=== PATIENT | male | born 1950 | race African-American/Black ===

== ENCOUNTER → 2019-09-02 | Day surgery (SDC) | payer OTHER ==
[~2019-09-02] MED LIST: ACETAMINOPHEN 325 MG TABLET PO PRN; ALBUTEROL SULFATE 2.5 MG/3 ML NEBU. NEB PRN; ASPI81TA59 PO; ATOR10TA60 PO; ATROPINE 0.5 MG/5 ML DISP.SYRIN. IV PRN; BALANCED SALT IRRIG OPHTH SOLN 15 ML BOTTLE. IRR ONE; CATARACT OPHTH GEL 0.5 ML SYRINGE. OS ONE; CHONDROIT-SOD-HYALURONATE KIT. OS ONE; EPINEPHrine AMPULE 0.5 MG in BALANCED SALT IRRIG SOLN PLUS 500 ML IO ONE; ERYTHROMYCIN 0.5% OPHTH OINTMENT 1GM TUBE. OS ONE; FOLI0.8T2 PO; HYALURONIDASE 75UNITS in LIDOCAINE 2% PF OPHTH 10 ML SYRINGE. OS ONE; KETOROLAC TROMETHAMINE 0.5% OPHTH SOLUTION BOTTLE. ONE; KETOROLAC TROMETHAMINE 0.5% OPHTH SOLUTION BOTTLE. OS SCH; LIDO/EPI IN BSS OPHTH 4 ML SYRINGE OS ONE; LISI-338 PO; LISI2.5T PO; LORA-254 PO; MOXIFLOXACIN 0.5% OPHTH SOLUTION 3ML BOTTLE. OS SCH; ONDANSETRON PF 4 MG/2 ML VIAL. IV PRN; POVIDONE-IODINE 5% OPHTH SOLUTION 30ML BOTTLE. OS ONE; PROPOFOL 20 ML IV ONE; TETRACAINE 0.5% OPHTH SOLUTION 4ML BOTTLE. OS ONE; TETRACAINE 0.5% OPHTH SOLUTION 4ML BOTTLE. OU ONE; THIA100T57 PO; diphenhydrAMINE 50 MG/ML VIAL IV PRN; prednisoLONE ACETATE 1% OPHTH SUSPENSION 5ML BOTTLE. ONE; prednisoLONE ACETATE 1% OPHTH SUSPENSION 5ML BOTTLE. OS SCH
[2019-09-02] MEDS: MOXIFLOXACIN 0.5% OPHTH SOLUTION 3ML BOTTLE. OS SCH ×3 (07:38→07:44)
--- NOTE | 2019-09-02 09:00 | PDOC4 ---
Date of Procedure: Sep 02, 2019 Preoperative Diagnosis: Mature Cataract, left Eye Postoperative Diagnosis: Mature Cataract, left Eye IFIS, OS Anesthesia: Local (Block) with monitored anesthesia care Surgeon: Felix Coronel D.O. Procedure: 1. Phacoemulsification with Intraocular Lens Implant 2. Vision Blue Staining of Anterior Capsule Findings: Mature cataract IFIS Indications: Worsening vision interfering with patient's lifestyle Narrative: After discussing the risks, complications and alternatives, including but not limited to loss of vision, infection, bleeding, swelling, anesthetic reaction, capsule rupture with vitreous loss, etc., the patient was given a peribulbar block under mild IV sedation and cardiac monitoring. Pressure was applied to the eye for approximately 10 minutes. The patient was transferred to the main operating room and was prepped and draped in the usual sterile fashion and positioned under the microscope. A lid speculum was placed. A side port incision was made. Due to poor dilation, epi-shugarcaine was injected. Air was injected into the anterior chamber followed by Vision Blue. After 30 seconds, a temporal 2.4 mm incision was made and the Vision Blue was aspirated from the eye. A continuous tear capsulorrhexis was performed, then hydrodissection was accomplished with balanced salt solution. The phacoemulsification needle was placed in the eye and the nucleus was emulsified. The remaining cortical material was removed with the irrigation and aspiration apparatus. The capsule was polished as needed. The posterior capsule was noted to be clean and intact. Viscoelastic was injected into the eye inflating the capsular bag. An intraocular lens was injected to the eye, unfolding as desired and was positioned in the capsular bag. The viscoelastic was aspirated from the eye. The wound edges were hydrated with balanced salt solution and there were no leaks. Viscoelastic was injected over the limbal incisions. Antibiotic and steroid were placed on the eye. The lid speculum was removed, the eye patched shut and a Meehan shield applied. There were no complications and the patient was taken to PACU in good condition. FELIX CORONEL DO Sep 02, 2019 09:00
[2019-09-02 09:15] VITALS: BP 131/84
== END ==
LOC: SURG 06:53
PROVIDERS: ATTEND Ophthalmology
DX: H26.8 Other specified cataract (principal); H21.81 Floppy iris syndrome; F17.210 Nicotine dependence, cigarettes, uncomplicated
CPT/HCPCS: 66982; J0171; J2704; V2632

== ENCOUNTER → 2019-09-23 | Day surgery (SDC) | payer OTHER ==
[~2019-09-23] MED LIST changes: -ACETAMINOPHEN 325 MG TABLET PO PRN; -ALBUTEROL SULFATE 2.5 MG/3 ML NEBU. NEB PRN; -ATROPINE 0.5 MG/5 ML DISP.SYRIN. IV PRN; +BENZONATATE 100 MG CAPSULE. PO ONE; +CATARACT OPHTH GEL 0.5 ML SYRINGE. OD ONE; -CATARACT OPHTH GEL 0.5 ML SYRINGE. OS ONE; +CHONDROIT-SOD-HYALURONATE KIT. OD ONE; -CHONDROIT-SOD-HYALURONATE KIT. OS ONE; +ERYTHROMYCIN 0.5% OPHTH OINTMENT 1GM TUBE. OD ONE; -ERYTHROMYCIN 0.5% OPHTH OINTMENT 1GM TUBE. OS ONE; +HYALURONIDASE 75UNITS in LIDOCAINE 2% PF OPHTH 10 ML SYRINGE. OD ONE; -HYALURONIDASE 75UNITS in LIDOCAINE 2% PF OPHTH 10 ML SYRINGE. OS ONE; +IPRATRPIUM/ALBUTEROL 0.5/2.5MG 3 ML NEBU. NEB PRN; +IV RINGERS SOLUTION,LACTATED 1,000 ML IV SCH; +KETOROLAC TROMETHAMINE 0.5% OPHTH SOLUTION BOTTLE. OD SCH; -KETOROLAC TROMETHAMINE 0.5% OPHTH SOLUTION BOTTLE. OS SCH; -LIDO/EPI IN BSS OPHTH 4 ML SYRINGE OS ONE; +MIDAZOLAM HCL PF 2 MG/2 ML VIAL. IV ONE; +MOXIFLOXACIN 0.5% OPHTH SOLUTION 3ML BOTTLE. OD SCH; -MOXIFLOXACIN 0.5% OPHTH SOLUTION 3ML BOTTLE. OS SCH; +POVIDONE-IODINE 5% OPHTH SOLUTION 30ML BOTTLE. OD ONE; -POVIDONE-IODINE 5% OPHTH SOLUTION 30ML BOTTLE. OS ONE; +TETRACAINE 0.5% OPHTH SOLUTION 4ML BOTTLE. OD ONE; -TETRACAINE 0.5% OPHTH SOLUTION 4ML BOTTLE. OS ONE; -diphenhydrAMINE 50 MG/ML VIAL IV PRN; +prednisoLONE ACETATE 1% OPHTH SUSPENSION 5ML BOTTLE. OD SCH; -prednisoLONE ACETATE 1% OPHTH SUSPENSION 5ML BOTTLE. OS SCH
[2019-09-23] MEDS: MOXIFLOXACIN 0.5% OPHTH SOLUTION 3ML BOTTLE. OD SCH ×3 (08:53→09:18)
--- NOTE | 2019-09-23 09:45 | PDOC4 ---
Phaco IOL/IFIS w/o Ring/OD Date of Procedure: Sep 23, 2019 Preoperative Diagnosis: 1. Senile Cataract, Right Eye 2. Anticipated Intraoperative Floppy Iris Syndrome Postoperative Diagnosis: 1. Senile Cataract, Right Eye 2. Intraoperative Floppy Iris Syndrome Anesthesia: Local (Block) with monitored anesthesia care Surgeon: Felix Coronel D.O. Procedure: Procdeure: Right Phacoemulsification with intraocular lens implant Findings: Senile Cataract Intraoperative Floppy Iris Syndrome Indications: Worsening vision interfering with patient's lifestyle Narrative: After discussing the risks, complications and alternatives, including but not limited to loss of vision, infection, bleeding, swelling, anesthetic reaction, capsule rupture with vitreous loss, etc., the patient was given a peribulbar block under mild IV sedation and cardiac monitoring. Pressure was applied to the eye for approximately 10 minutes. The patient was transferred to the main operating room and was prepped and draped in the usual sterile fashion and positioned under the microscope. A lid speculum was placed. A temporal clear corneal incision was made with a keratome and epi-Shugarcaine was injected into the anterior chamber, this was followed by injecting viscoelastic. A side port incision was made. A continuous tear capsulorrhexis was performed, then hydrodissection was accomplished with balanced salt solution. The phacoemulsifi cation needle was placed in the eye and the nucleus was emulsified. The remaining cortical material was removed with the irrigation and aspiration apparatus. The capsule was polished as needed. The posterior capsule was noted to be clean and intact. Viscoelastic was injected into the eye inflating the capsular bag. An intraocular lens was injected into the eye, unfolding as de sired and was positioned in the capsular bag. The viscoelastic was aspirated from the eye. The wound edges were hydrated with balanced salt solution and there were no leaks. Viscoelastic was injected over the limbal incisions. Antibiotic and steroid were placed on the eye. The lid speculum was removed, the eye patched shut and a Meehan shield applied. There were no compilations and the patient was taken to the PACU in good condition. FELIX CORONEL DO Sep 23, 2019 09:45
[2019-09-23 09:48] VITALS: BP 123/78
== END ==
LOC: SURG 08:12
PROVIDERS: ATTEND Ophthalmology
DX: H25.11 Age-related nuclear cataract, right eye (principal); H21.81 Floppy iris syndrome; F17.200 Nicotine dependence, unspecified, uncomplicated; F10.21 Alcohol dependence, in remission; Z86.73 Personal history of transient ischemic attack (TIA), and cerebral infarction without residual deficits
CPT/HCPCS: 66984; J0171; J2704; V2632

== ENCOUNTER 2021-06-20 12:15 | Emergency (ER) | payer OTHER ==
[~2021-06-20] VITALS: Ht 170.2 cm; Wt 60.0 kg
[~2021-06-20 12:15] MED LIST changes: -BALANCED SALT IRRIG OPHTH SOLN 15 ML BOTTLE. IRR ONE; -BENZONATATE 100 MG CAPSULE. PO ONE; -CATARACT OPHTH GEL 0.5 ML SYRINGE. OD ONE; -CHONDROIT-SOD-HYALURONATE KIT. OD ONE; -EPINEPHrine AMPULE 0.5 MG in BALANCED SALT IRRIG SOLN PLUS 500 ML IO ONE; -ERYTHROMYCIN 0.5% OPHTH OINTMENT 1GM TUBE. OD ONE; -FOLI0.8T2 PO; +FOLI0.8T5 PO; -HYALURONIDASE 75UNITS in LIDOCAINE 2% PF OPHTH 10 ML SYRINGE. OD ONE; -IPRATRPIUM/ALBUTEROL 0.5/2.5MG 3 ML NEBU. NEB PRN; -IV RINGERS SOLUTION,LACTATED 1,000 ML IV SCH; -KETOROLAC TROMETHAMINE 0.5% OPHTH SOLUTION BOTTLE. OD SCH; -KETOROLAC TROMETHAMINE 0.5% OPHTH SOLUTION BOTTLE. ONE; -LISI-338 PO; -LISI2.5T PO; +LISI2.5T12 PO; +LISI5TAB15 PO; -MIDAZOLAM HCL PF 2 MG/2 ML VIAL. IV ONE; -MOXIFLOXACIN 0.5% OPHTH SOLUTION 3ML BOTTLE. OD SCH; -ONDANSETRON PF 4 MG/2 ML VIAL. IV PRN; -POVIDONE-IODINE 5% OPHTH SOLUTION 30ML BOTTLE. OD ONE; -PROPOFOL 20 ML IV ONE; -TETRACAINE 0.5% OPHTH SOLUTION 4ML BOTTLE. OD ONE; -TETRACAINE 0.5% OPHTH SOLUTION 4ML BOTTLE. OU ONE; -prednisoLONE ACETATE 1% OPHTH SUSPENSION 5ML BOTTLE. OD SCH; -prednisoLONE ACETATE 1% OPHTH SUSPENSION 5ML BOTTLE. ONE
--- NOTE | 2021-06-20 12:44 | RAD ---
CT scan of the head without contrast 06/20/2021 Clinical History: Altered mental status. Left facial droop. Code stroke. Technique: Unenhanced, contiguous, 5 mm axial sections were obtained through the head. One or more of the following individualized dose reduction techniques were utilized for this study: 1. Automated exposure control. 2. Adjustment of the mA and/or kV according to patient size. 3. Use of iterative reconstruction technique. Findings: There is generalized parenchymal atrophy. Areas of decreased attenuation are seen within th e periventricular and subcortical white matter of both cerebral hemispheres consistent with areas of small vessel ischemic disease. Old areas of lacunar infarction are seen involving the basal ganglia r egions, left greater than right. An area of encephalomalacia is seen involving the left frontal lobe. No acute parenchymal abnormality is seen. No extra-axial fluid collection is noted. No skull fractur e is seen. Impression: No acute intracranial abnormality is seen. This result was discussed with the emergency department at 1240 hours. FOR INTERNAL CODING PURPOSES RESULT CODE: (C) Electronically signed by: Eliud Petersen MD (06/20/2021 12:42 PM) [id number]
--- NOTE | 2021-06-20 12:46 | PHYS DOC ---
Past History Past Medical History: Alcoholism, CVA, High Cholesterol, Hypertension, TIA Additional Past Medical Histor: Orr palsy, polysubstance abuse Additional Past Surgical Histo: unk Smoking: Non-smoker Alcohol Use: Occasionally Drug Use: Cocaine, Marijuana, Methamphetamine General Adult EDM: Chief Complaint: ALTERED MENTAL STATUS HPI: HPI: Patient is a 71-year-old male that was brought in by [facility] after being found outside [facility] on the ground. Patient has severe dysarthria, so history and details of the event are hard to come by. Per the nursing staff patient was found outside of [facility] facility where lunches was being served patient was found on the ground, [facility] [place] [facility] diverted him to [facility] for possible stroke. Glucose currently is 77 by [id number] testing. Review of Systems: Review of Systems: Unable to get a review of systems due to patient's severe dysarthria Allergies: Allergies: Allergies Coded Allergies Type Severity Reaction Last Updated Verified No Known Drug Allergies 08/28/19 No Physical Exam: PE: Constitutional: Well developed, well nourished, no acute distress, non-toxic appearance. [] HENT: Normocephalic, atraumatic, bilateral external ears normal, oropharynx moist, no oral exudates, nose normal, patient unable to control secretions right facial droop noted [] Eyes: PERRLA, EOMI, conjunctiva normal, no discharge. [] Neck: Normal range of motion, no tenderness, supple, no stridor. [] Cardiovascular:Heart rate regular rhythm, no murmur [] Lungs & Thorax: Bilateral breath sounds clear to auscultation [] Abdomen: Bowel sounds normal, soft, no tenderness, no masses, no pulsatile masses. [] Skin: Warm, dry, no erythema, no rash. [] Back: No tenderness, no CVA tenderness. [] Extremities: No tenderness, no cyanosis, no clubbing, ROM intact, no edema. [] Neurologic: See NIHSS, patient alert and orientated to person, patient unable to say where he is at, patient unable to give history of presenting illnesses, patient speech is very slurred and dysarthric, patient unable to control secretions having to use a tissue due to drooling. Psychologic: Affect normal, judgement normal, mood normal. [] Current Patient Data: Labs: Laboratory Tests Test 06/20/21 12:26 Glucose (Fingerstick) 80 mg/dL (70-99) EKG: EKG: EKG done at [address] Celeste at 1253 shows sinus rhythm with a rate of 62 MT interval of 160 ms with a QT interval of 396 no STEMI [] Radiology/Procedures: Radiology/Procedures: REASON: AMS, LEFT FACIAL DROP PROCEDURE: CT CODE STROKE HEAD WO CT scan of the head without contrast 06/20/2021 Clinical History: Altered mental status. Left facial droop. Code stroke. Technique: Unenhanced, contiguous, 5 mm axial sections were obtained through the head. One or more of the following individualized dose reduction techniques were utilized for this study: 1. Automated exposure control. 2. Adjustment of the mA and/or kV according to patient size. 3. Use of iterative reconstruction technique. Findings: There is generalized parenchymal atrophy. Areas of decreased attenuation are seen within the periventricular and subcortical white matter of both cerebral hemispheres consistent with areas of small vessel ischemic disease. Old areas of lacunar infarction are seen involving the basal ganglia regions, left greater than right. An area of encephalomalacia is seen involving the left frontal lobe. No acute parenchymal abnormality is seen. No extra-axial fluid collection is noted. No skull fracture is seen. Impression: No acute intracranial abnormality is seen. This result was discussed with the emergency department at 1240 hours. FOR INTERNAL CODING PURPOSES RESULT CODE: (C) [] Heart Score: C/O Chest Pain: N/A Risk Factors: Risk Factors: DM, Current or recent (<one month) smoker, HTN, HLP, family history of CAD, obesity. Risk Scores: Score 0 - 3: 2.5% MACE over next 6 weeks - Discharge Home Score 4 - 6: 20.3% MACE over next 6 weeks - Admit for Clinical Observation Score 7 - 10: 72.7% MACE over next 6 weeks - Early Invasive Strategies Course & Med Decision Making: Course & Med Decision Making Pertinent Labs and Imaging studies reviewed. (See chart for details) 1300 patient is refusing all lab draws, refusing to have IV saline lock placed, patient is alert and orientated knows he is at the hospital he does know it is cold outside and [place] is coming up, patient does not want wish any further treatment, patient is signing out AGAINST MEDICAL ADVICE, patient is informed that we would like to further investigate his strokelike symptoms, and the inability to do so may cause further disability, worsening symptoms, or even . Patient verbalizes understanding of leaving AGAINST MEDICAL ADVICE patient ambulated from the department with a steady gait with all of his belongings. Dragon Disclaimer: Dragon Disclaimer: This electronic medical record was generated, in whole or in part, using a voice recognition dictation system. Departure Departure: Impression: Primary Impression: Altered mental status, unspecified Qualified Codes: R41.82 - Altered mental status, unspecified Disposition: LEFT AGAINST MEDICAL ADVICE Referrals: NON,STAFF (PCP) NIHSS - ED NIH Stroke Scale: NIH Stroke Scale Response (Comments) Value Level of Consciousness: 0 Alert/Responsive 0 LOC Questions: 1 Answers one correctly 1 LOC Commands: 0 Performs both tasks 0 Best Gaze: 0 Normal 0 Visual: 0 No visual loss 0 Facial Palsy: 1 Minor paralysis 1 Motor - Left Arm 0 No drift 0 Motor - Right Arm 0 No drift 0 Motor - Left Leg 0 No drift 0 Motor: Right Leg 0 No drift 0 Limb Ataxia: 2 Two limbs 2 Sensory: 0 No loss 0 Best Language: 1 Mild to mod aphasia 1 Dysathria: 2 Severe 2 Extinction and Inattention: 0 Normal 0 Total 7 ARSEN KEITH APRN Jun 20, 2021 12:46
[2021-06-20 13:01] VITALS: BP 131/70
--- NOTE | 2021-06-20 13:15 | RAD ---
XR CHEST 1V History: Reason: change in LOC / Spl. Instructions: / History: Comparison: None. Findings: No consolidation or pleural effusion. Normal heart size. No pneumothorax. Impression: 1. No acute cardiopulmonary process. Electronically signed by: Barry Garrett DO (06/20/2021 1:12 PM) [id number]
--- NOTE | 2021-06-20 13:16 | EKG ---
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
== END 2021-06-20 13:10 | disposition left against medical advice (07) ==
LOC: ER 12:15
DX: R41.82 Altered mental status, unspecified (principal); F10.20 Alcohol dependence, uncomplicated; E78.00 Pure hypercholesterolemia, unspecified; I10 Essential (primary) hypertension; Z86.73 Personal history of transient ischemic attack (TIA), and cerebral infarction without residual deficits; Y90.9 Presence of alcohol in blood, level not specified
CPT/HCPCS: 70450; 71045; 82947; 93005; 99285

== ENCOUNTER 2021-06-24 13:23 | Inpatient (IN) | payer OTHER ==
[~2021-06-24] VITALS: Ht 152.4 cm; Wt 56.1 kg
--- NOTE | 2021-06-24 13:36 | RAD ---
CT scan of the head without contrast 06/24/2020 Clinical History: Slurred speech. Code stroke. Technique: Unenhanced, contiguous, 5 mm axial sections were obtained through the head. One or more of the following individualized dose reduction techniques were utilized for this study: 1. Automated exposure control. 2. Adjustment of the mA and/or kV according to patient size. 3. Use of iterative reconstruction technique. Findings: Comparison study is dated 06/20/2021. There is generalized parenchymal atrophy. Areas of decreased attenuation are seen within the perivent ricular and subcortical white matter of both cerebral hemispheres consistent with areas of small vess el ischemic disease. No acute parenchymal abnormality is seen. No extra-axial fluid collection is not ed. No skull fracture is seen. Impression: No acute intracranial abnormality is seen. This result was discussed with Dr. Celeste at 1332 hours. FOR INTERNAL CODING PURPOSES RESULT CODE: (C) Electronically signed by: Eliud Petersen MD (06/24/2021 1:34 PM) [id number]
--- NOTE | 2021-06-24 13:44 | PHYS DOC ---
Past History Past Medical History: Alcoholism, CVA, High Cholesterol, Hypertension, TIA Additional Past Medical Histor: Orr palsy, polysubstance abuse (SOILA CONTI DO) Past Surgical History: No Surgical History Additional Past Surgical Histo: unk (SOILA CONTI DO) Smoking: Non-smoker Alcohol Use: Occasionally Drug Use: Cocaine, Marijuana, Methamphetamine (SOILA CONTI DO) General Adult EDM: Chief Complaint: NEURO SYMPTOMS/DEFICITS HPI: HPI: 71-year-old male presents via EMS as a code stroke. Patient was reported to have increased weakness starting 2 days ago. All records come from EMS as the patient is not answering questions. He was reported to be at the bank when he had weakness and appeared to be altered. When EMS arrived, they felt like he had a facial droop and the patient was claiming weakness. He was able to stand on his own to transfer to the top. After getting on the gurney he has been unwilling to follow commands or move very much. Patient has a known recent history of Orr's palsy. He was seen in this emergency room about a week ago with similar symptoms to today. He signed out AMA at that time. Patient is nodding his head yes and no to questions like his he has any pain. He denies any pain. (SOILA CONTI DO) Review of Systems: Review of Systems: Unable to perform due to patient not cooperating. (SOILA CONTI DO) Allergies: Allergies: Allergies Coded Allergies Type Severity Reaction Last Updated Verified No Known Drug Allergies 08/28/19 No (SOILA CONTI DO) Physical Exam: PE: Constitutional: Well developed, well nourished, no acute distress, sleepy, non- toxic appearance. [] HENT: Normocephalic, atraumatic, bilateral external ears normal, oropharynx moist, no oral exudates, nose normal. [] Eyes: PERRLA, EOMI, conjunctiva normal, no discharge. [] Neck: No tenderness, supple, no stridor. [] Cardiovascular: Heart rate 74, regular rhythm, no murmur [] Lungs & Thorax: Bilateral breath sounds clear to auscultation [] Abdomen: Bowel sounds normal, soft, no tenderness, no masses, no pulsatile masses. [] Skin: Warm, dry, no erythema, no rash. [] Back: No tenderness, no CVA tenderness. [] Extremities: No tenderness, no cyanosis, no clubbing, ROM intact, no edema. [] Neurologic: Moves all extremities, nods head to questions. [] (SOILA CONTI DO) Current Patient Data: Vital Signs: Vital Signs Date Time Temp Pulse Resp B/P (MAP) Pulse Ox O2 Delivery O2 Flow Rate FiO2 06/24/21 13:32 98.0 74 16 156/101 (119) 99 Room Air (SOILA CONTI DO) EKG: EKG: Sinus rhythm, rate 74, normal axis, no ST elevation or depression. [] (SOILA CONTI DO) Radiology/Procedures: Radiology/Procedures: [] Impressions: CT scan of the head without contrast 06/24/2020 Clinical History: Slurred speech. Code stroke. Technique: Unenhanced, contiguous, 5 mm axial sections were obtained through the head. One or more of the following individualized dose reduction techniques were utilized for this study: 1. Automated exposure control. 2. Adjustment of the mA and/or kV according to patient size. 3. Use of iterative reconstruction technique. Findings: Comparison study is dated 06/20/2021. There is generalized parenchymal atrophy. Areas of decreased attenuation are seen within the periventricular and subcortical white matter of both cerebral hemispheres consistent with areas of small vessel ischemic disease. No acute parenchymal abnormality is seen. No extra-axial fluid collection is noted. No skull fracture is seen. Impression: No acute intracranial abnormality is seen. This result was discussed with Dr. Conti at 1332 hours. FOR INTERNAL CODING PURPOSES RESULT CODE: (C) Electronically signed by: Eliud Petersen MD (06/24/2021 1:34 PM) [id number] DICTATED AND SIGNED BY: ELIUD PETERSEN MD DATE: 06/24/21 1331 CC: SOILA CONTI DO; NON,STAFF ~MTH0 0 Site ID: [id number] EXAMINATION: XR CHEST 1V. HISTORY: 71 years Male Reason: slurred speech . COMPARISON: June 20, 2021. Findings: The lungs are clear. The heart size is normal. There is no effusion or pneumothorax. The mediastinum and bere appear unremarkable considering slightly of angulation which with the exaggerate the silhouette of the aortic arch and descending components. Impression: No acute process. Electronically signed by: Sukumar Olsen MD (06/24/2021 1:49 PM) [id number] DICTATED AND SIGNED BY: SUKUMAR OLSEN MD DATE: 06/24/21 1346 CC: SOILA CONTI DO; NON,STAFF ~MTH0 0 (SOILA CONTI DO) Heart Score: C/O Chest Pain: N/A Risk Factors: Risk Factors: DM, Current or recent (<one month) smoker, HTN, HLP, family history of CAD, obesity. Risk Scores: Score 0 - 3: 2.5% MACE over next 6 weeks - Discharge Home Score 4 - 6: 20.3% MACE over next 6 weeks - Admit for Clinical Observation Score 7 - 10: 72.7% MACE over next 6 weeks - Early Invasive Strategies (SOILA CONTI DO) Course & Med Decision Making: Course & Med Decision Making Pertinent Labs and Imaging studies reviewed. (See chart for details) The patient's chest x-ray is negative for acute findings. His head CT is negative for acute findings. His labs are unremarkable. The patient is still sleepy and not very cooperative. He is moving all of his extremities, but is not talking to us. His urine drug screen was positive for cocaine. Patient was signed out to Dr. Arzola at 1800 for further management. [] (SOILA CONTI DO) Course & Med Decision Making See Dr. Conti chart for details prior shift change. Impression: 1. Mental Status Change 2. Orr Palsy 3. Weakness 4. Cocaine and Tobacco use (RICHARD ARZOLA MD) Dragon Disclaimer: Matt Disclaimer: This electronic medical record was generated, in whole or in part, using a voice recognition dictation system. (SOILA CONTI DO) Departure Departure: Referrals: NON,STAFF (PCP) SOILA CONTI DO Jun 24, 2021 13:44 RICHARD ARZOLA MD Jun 24, 2021 18:35
--- NOTE | 2021-06-24 13:47 | EKG ---
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
--- NOTE | 2021-06-24 13:51 | RAD ---
Site ID: [id number] EXAMINATION: XR CHEST 1V. HISTORY: 71 years Male Reason: slurred speech . COMPARISON: June 20, 2021. Findings: The lungs are clear. The heart size is normal. There is no effusion or pneumothorax. The mediastinum and bere appear unremarkable considering slightly of angulation which with the exagge rate the silhouette of the aortic arch and descending components. Impression: No acute process. Electronically signed by: Gilberto Olsen MD (06/24/2021 1:49 PM) [id number]
[2021-06-24 14:07] LABS: BASO % 1 % (0-3); EOS % 0 % (0-3); HEMATOCRIT 42.9 % (39.0-53.0); HEMOGLOBIN 14.3 g/dL (13.0-17.5); LYMPH # 1.1 x10^3/uL (1.0-4.8); LYMPH % 12 % (24-48); MEAN CORPUSCULAR HEMOGLOBIN 28 pg (25-35); MEAN CORPUSCULAR HGB CONC 33 g/dL (31-37); MEAN CORPUSCULAR VOLUME 85 fL (79-100); MONO # 0.7 x10^3/uL (0.0-1.1); MONO % 8 % (0-9); NEUT # 7.3 x10^3uL (1.8-7.7); NEUT % 80 % (31-73); PLATELET COUNT 325 x10^3/uL (140-400); RED BLOOD COUNT 5.04 x10^6/uL (4.30-5.70); RED CELL DISTRIBUTION WIDTH 14.4 % (11.5-14.5); WHITE BLOOD COUNT 9.1 x10^3/uL (4.0-11.0)
[2021-06-24 14:17] LABS: CALCIUM 9.3 mg/dL (8.5-10.1); CREATININE 1.3 mg/dL (0.7-1.3); POTASSIUM 4.3 mmol/L (3.5-5.1)
[2021-06-24 14:23] LABS: ALBUMIN 4.3 g/dL (3.4-5.0); ALBUMIN/GLOBULIN RATIO 1.2 (1.0-1.7); TOTAL BILIRUBIN 0.3 mg/dL (0.2-1.0)
[2021-06-24 15:30] LABS: BACTERIA,URINE 0 /HPF (0-FEW); BILIRUBIN,URINE NEG (NEG); CLARITY,URINE HAZY; COLOR,URINE YELLOW; GLUCOSE,URINE NEG (NEG); NITRITE,URINE NEG (NEG); SQUAMOUS EPITHELIAL CELL,UR FEW /LPF; UROBILINOGEN,URINE 0.2 mg/dL (0.2 mg/dL)
[2021-06-24 15:35] LABS: BARBITURATES NEG (NEG); BENZODIAZEPINES NEG (NEG); CANNABINOIDS NEG (NEG); COCAINE POS (NEG); METHADONE NEG (NEG); OPIATES NEG (NEG); PHENCYCLIDINE NEG (NEG)
[2021-06-24 15:36] LABS: AMPHETAMINE/METHAMPHETAMINE NEG (NEG)
[2021-06-24] MEDS ORDERED: IV NORMAL SALINE 1,000ML 1,000 ML IV ONE (15:45)
[2021-06-24] MEDS ORDERED: ONDANSETRON PF 4 MG/2 ML VIAL. IVP PRN (17:00)
[2021-06-24 21:09] VITALS: BP 139/91
[2021-06-25] MEDS ORDERED: IV DEXTROSE 5 %-0.45 % NACL 1,000 ML IV SCH (00:15)
[2021-06-25 04:49] VITALS: BP 128/76
[2021-06-25] MEDS ORDERED: ASPIRIN RECTAL 300 MG SUPP. PR ONE (06:00)
[2021-06-25 08:35] LABS: BASO % 1 % (0-3); EOS # 0.1 x10^3/uL (0.0-0.7); EOS % 1 % (0-3); HEMATOCRIT 42.8 % (39.0-53.0); HEMOGLOBIN 14.1 g/dL (13.0-17.5); LYMPH # 1.4 x10^3/uL (1.0-4.8); LYMPH % 15 % (24-48); MEAN CORPUSCULAR HEMOGLOBIN 28 pg (25-35); MEAN CORPUSCULAR HGB CONC 33 g/dL (31-37); MEAN CORPUSCULAR VOLUME 86 fL (79-100); MONO % 11 % (0-9); NEUT # 6.9 x10^3uL (1.8-7.7); NEUT % 72 % (31-73); PLATELET COUNT 301 x10^3/uL (140-400); RED BLOOD COUNT 4.99 x10^6/uL (4.30-5.70); RED CELL DISTRIBUTION WIDTH 14.8 % (11.5-14.5); WHITE BLOOD COUNT 9.4 x10^3/uL (4.0-11.0)
[2021-06-25 08:42] LABS: ALBUMIN 3.8 g/dL (3.4-5.0); ALBUMIN/GLOBULIN RATIO 0.9 (1.0-1.7); CALCIUM 8.6 mg/dL (8.5-10.1); CREATININE 1.2 mg/dL (0.7-1.3); GFR 72.4; TOTAL BILIRUBIN 0.6 mg/dL (0.2-1.0); TOTAL PROTEIN 7.9 g/dL (6.4-8.2)
[2021-06-25 08:55] LABS: POTASSIUM 3.9 mmol/L (3.5-5.1)
[2021-06-25 11:12] VITALS: BP 145/90
--- NOTE | 2021-06-26 01:48 | CONS ---
DATE OF CONSULTATION: 06/25/2021 NEUROLOGY CONSULTATION REFERRING PHYSICIAN: Dr. Victoria. REASON FOR CONSULTATION: Rule out stroke. HISTORY OF PRESENT ILLNESS: This is a 71-year-old right-handed male who was admitted through Emergency Room on account of increasing weakness of the upper and lower extremities, began 2 days ago. EMS was activated and transferred the patient to Emergency Room at [facility]. The patient apparently did not communicate and did not answer any questions. It was reported that he was at the bank when he started experiencing generalized weakness. He was found by EMS having a facial droop, but he was very weak and unable to stand up. The patient was not able to communicate in his way to Emergency Room as well as when he was in Emergency Room. Initial nonenhanced head CT scan revealed no acute intracranial process, but shows bilateral cerebral small vessel ischemic changes. The patient has not been able to talk or provide any information. During the interview, the patient was able to follow commands and appeared to be a understanding but not able to communicate. He denies headaches, visual disturbances, nausea, vomiting, chest pain, shortness of breath, palpitation, diplopia or dysphagia. PAST MEDICAL HISTORY: Significant for hypertension, hyperlipidemia, history of stroke and TIA, Orr's palsy, and alcoholism. He has had longstanding history of polysubstance abuse. FAMILY HISTORY: Not obtainable. SOCIAL HISTORY: There is history of methamphetamine use, marijuana and cocaine. CURRENT MEDICATIONS: Aspirin, and Zofran. ALLERGIES: No known drug allergies. REVIEW OF SYSTEMS: A 10-point review of system was performed as mentioned above in history of present illness. PHYSICAL EXAMINATION: GENERAL: Well-developed, well-nourished male in no acute distress. He weighs 56.1 kilos. VITAL SIGNS: Blood pressure 128/76, respiratory rate is 16, pulse is 70 and regular, temperature 97.6, oxygen saturation 100% on room air. HEENT: Normocephalic, atraumatic, otherwise unremarkable. NECK: Supple, negative for carotid bruit, lymphadenopathy or thyromegaly. LUNGS: Clear to A and P. CARDIOVASCULAR: Regular rate and rhythm, normal S1, S2. There is no S3, S4 or murmur. ABDOMEN: Soft. Bowel sounds positive. EXTREMITIES: Negative for cyanosis, clubbing or pedal edema. NEUROLOGIC: Mental status: The patient is awake, but not able to communicate. Comprehension appeared to be intact. He follows 1-step commands. He denies hallucination or delusion. Cranial nerves: Pupils are equal and reactive to light and accommodation. The extraocular movements are intact. There is no nystagmus. There is no facial motor or sensory deficit. Hearing appeared to be intact. The palate is elevated symmetrically. Sternocleidomastoid muscles are powerful bilaterally. The patient shrugs his shoulders symmetrically and protrudes his tongue in the midline without fasciculation or atrophy. Motor exam: No focal muscle bulk wasting. The tone is normal. The strength is 4/5 throughout. Sensory examination revealed a normal pinprick, light touch, vibratory and position senses. Deep tendon reflexes were symmetric and active without pathology responses. Gait: The stance is steady. LABORATORY DATA: CBC revealed white blood cells of 9.4 thousand, hemoglobin 14.1, hematocrit 42.8, platelet count 301,000. Chemistry revealed sodium of 139, potassium 3.9, chloride 104, CO2 of 25, BUN 17, creatinine 1.2, glucose 81. Lipid profile revealed high cholesterol at 206 and high LDL at 139. __ is negative. Urine drug screen is positive for cocaine. IMPRESSION: 1. Speech dysfunction. The patient is unable to communicate for an obvious reason. However, his comprehension is normal, transient ischemic attack versus stroke should be ruled out. 2. Multiple medical problems include hypertension, hyperlipidemia, longstanding use of polysubstance abuse, history of alcoholism, stroke and transient ischemic attack. RECOMMENDATIONS: 1. The patient wants to be discharged to [facility].. 2. The patient needs a substance rehab and speech therapy along with brain MRI. YAYA DR: Kaycee TID: [id number]
== END 2021-06-25 11:55 | disposition left against medical advice (07) | DRG 947 ==
LOC: ER 13:23 → 1 SOUTH 16:48
PROVIDERS: ADMIT Internal Medicine; ATTEND Internal Medicine
DX: R53.1 Weakness (principal); I63.9 Cerebral infarction, unspecified; E78.00 Pure hypercholesterolemia, unspecified; E78.5 Hyperlipidemia, unspecified; G51.0 Bell's palsy; I10 Essential (primary) hypertension; Z20.822 Contact with and (suspected) exposure to COVID-19; Z53.29 Procedure and treatment not carried out because of patient's decision for other reasons; F14.90 Cocaine use, unspecified, uncomplicated; F17.200 Nicotine dependence, unspecified, uncomplicated; Z86.73 Personal history of transient ischemic attack (TIA), and cerebral infarction without residual deficits; Z79.899 Other long term (current) drug therapy
CPT/HCPCS: 36415; 70450; 71045; 80053; 80061; 80307; 81001; 84484; 85025; 85610; 85730; 87426; 93005; 96360; G0480; U0003; 99285-25; J7030